=== PATIENT | female | born 2000 | race Caucasian/White ===

== ENCOUNTER 2018-03-23 16:28 | Emergency (ER) | payer BC ==
[2018-03-23 16:54] VITALS: RESP 18
--- NOTE | 2018-03-23 18:48 | ED ---
ENT HPI - General Chief complaint: ENT Stated complaint: fever, 7wks preg Time Seen by Provider: 03/23/18 17:55 Source: patient Mode of arrival: ambulatory Limitations: no limitations - History of Present Illness Initial comments: 18-year-old female 7 weeks with no PMH presenting today for cc of congestion, sinus pressure, sore throat and b/l ear pain. Pt states that she has been experiencing congestion, sinus pressure, sore throat and bilateral ear pain the past 2-3 days. Patient states that she has also recorded a fever at home. Pt denies abdominal pain, vaginal bleeding, diarrhea, constipation, nausea , hearing loss, ear drainage/bleeding, difficulty breathing or swallowing. Patient states she has had morning sickness however changes, denies hematemesis. Patient denies any cough or sputum production. Patient denies any body aches or rigors. Patient states that symptoms are similar to when she' s had a sinus infection the past, including complaint of dull aching headache. Patient states that she called her OBGYN who told her to come to the ER for evaluation if concerned. Pt stated that she would like the baby checked on and an picture of the baby, denied any symptoms concerning for compromise of baby including vaginal discharge, bleeding, or abdominal pain. Pt has scheduled OBGYN appointment next week. Pt states that she has taken tylenol for fever mgmt over the course of the past 2-3 days with last dose earlier today. Upon arrival pt appears well, nontoxic. VS within normal limits. No signs of distress. Remainder of ROS (-) shortness of breath, chest pain, back pain, numbness or tingling, dysuria or hematuria, constipation or diarrhea, or visual changes, or any other complaints. - Related Data Previous Rx's Medication Instructions Recorded Cephalexin [Keflex] 500 mg PO Q6HR 5 Days #20 cap 03/23/18 Allergies Allergy/AdvReac Type Severity Reaction Status Date / Time codeine Allergy Nausea & Verified 03/23/18 18:20 [From Tylenol-Codeine #3] Vomiting Review of Systems ROS Statement: Those systems with pertinent positive or pertinent negative responses have been documented in the HPI. ROS Other: All systems not noted in ROS Statement are negative. Constitutional: Reports: fever. Denies: chills, night sweats ENT: Reports: ear pain, throat pain Respiratory: Denies: cough, dyspnea, wheezes, hemoptysis, stridor Cardiovascular: Denies: chest pain, dyspnea on exertion Endocrine: Denies: fatigue Gastrointestinal: Reports: vomiting (on and off since ). Denies: abdominal pain, nausea Genitourinary: Denies: urgency, dysuria, frequency, hematuria Musculoskeletal: Denies: back pain Skin: Denies: rash, lesions Neurological: Reports: headache (dull ache, not worst of life, states its barely noticeable). Denies: numbness, paresthesias, confusion, abnormal gait Past Medical History Past Medical History: No Reported History History of Any Multi-Drug Resistant Organisms: None Reported Past Surgical History: Tonsillectomy Past Psychological History: Depression Smoking Status: Never smoker Past Alcohol Use History: None Reported Past Drug Use History: None Reported General Exam - General Exam Comments Initial Comments: General: The patient is awake and alert, in no distress, and does not appear acutely ill. Eye: +3 mm pupils are equal, round and reactive to light, extra-ocular movements are intact. no evidence of photophobia.. No nystagmus. There is normal conjunctiva bilaterally. No signs of icterus. Ears, nose, mouth and throat: There are moist mucous membranes and no oral lesions. Tympanic membranes are within normal limits bilaterally, there is no erythema, effusions retractions or bulging. External auditory canal no erythema , swelling, drainage or lesions. No pain to palpation of the tragus or pulling of the auricle. No tenderness to palpation of the mastoid. Oropharynx is erythematous, there is postnasal drip. Tonsillar pillars absent. Uvula midline. No palpable anterior cervical lymphadenopathy. Neck: The neck is supple, there is no tenderness or JVD. No nuchal rigidity, negative Kernig, negative Brudzinski. Cardiovascular: There is a regular rate and rhythm. No murmur, rub or gallop is appreciated. Respiratory: Lungs are clear to auscultation, respirations are non-labored, breath sounds are equal. No wheezes, stridor, rales, or rhonchi. Gastrointestinal: Soft, non-distended, non-tender abdomen without masses or organomegaly noted. There is no rebound or guarding present. No CVA tenderness. Bowel sounds are unremarkable. Musculoskeletal: Normal ROM, no tenderness. Strength 5/5. Sensation intact. Radial pulses equal bilaterally 2+. Neurological: A&O x 3. CN II-XII intact, There are no obvious motor or sensory deficits. Coordination appears grossly intact. Speech is normal. Skin: Skin is warm and dry and no rashes or lesions are noted. Psychiatric: Cooperative, appropriate mood & affect, normal judgment. Limitations: no limitations Course Vital Signs 03/23/18 03/23/18 16:51 20:41 Temperature 98.5 F 98.1 F Pulse Rate 81 85 Respiratory 18 18 Rate Blood Pressure 121/77 108/71 O2 Sat by Pulse 99 97 Oximetry Medical Decision Making - Medical Decision Making Physical exam revealed a mildly erythematous oropharynx with postnasal drip. Tympanic membranes within normal limits, I feel patient's bilateral ear pain most likely due to eustachian tube dysfunction from congestion. There was tenderness palpation of the frontal and maxillary sinuses. Rhinorrhea clear. Lungs sounds clear to auscultation. Abdominal pain benign. Negative influenza, strep throat testing. I feel patient's symptoms are possibly due to viral upper rest or infection. We discussed chest x-ray, however patient deferred at this time, stating she does not want to expose the baby to any radiation. I discussed option of shielding however she states that she would return if symptoms worsen/develop cough/sputum production. Pt appears well and nontoxic, VS within normal limits. Pt denies any abdominal pain, cramping or vaginal bleeding/discharge. Pt requested "check up" on baby. UA revealed leukocyte esterase as well as white blood cells concerning for infection. Patient denies symptoms. Patient be treated for urinary tract infection in with Keflex 4 times a day 5 days with close primary care follow-up in 1-2 days.. Transvaginal ultrasound revealed viable intrauterine 6 weeks 3 days with CORIE of 11/13/2018, heart rate 120 bpm adnexa are within normal limits, no free fluid- no evidence of ectopic. At this time I feel pt is stable for discharge with f/u with OBGYN as scheduled next week. Case discussed with Dr. Yee who agreed with impression plan. Discussed symptomatic treatment for viral URI, patient is agreeable with plan. Patient stated Tylenol for fever management, follow-up closely with primary care provider as well as [facility]. Patient is agreeable plan states she is ready for discharge. Patient was discharged in stable condition. Return parameters discussed at length, patient verbalized understanding. Patient denied questions at this time. - Lab Data Lab Results 03/23/18 03/23/18 03/23/18 Range/Units 18:35 18:35 19:40 Urine Color Urine Appearance (Clear) Urine pH (5.0-8.0) Ur Specific [place] (1.001-1.035) Urine Protein (Negative) Urine Glucose (UA) (Negative) Urine Ketones (Negative) Urine Blood (Negative) Urine Nitrite (Negative) Urine Bilirubin (Negative) Urine Urobilinogen (<2.0) mg/dL Ur Leukocyte Esterase (Negative) Urine RBC (0-5) /hpf Urine WBC (0-5) /hpf Ur Squamous Epith Cells (0-4) /hpf Urine Bacteria (None) /hpf Urine Mucus (None) /hpf Urine HCG, Qual Detected (Not Detectd) Influenza Type A RNA Not Detected (Not Detectd) Influenza Type B (PCR) Not Detected (Not Detectd) Group A Strep Rapid Negative (Negative) 03/23/18 Range/Units 19:40 Urine Color Yellow Urine Appearance Cloudy H (Clear) Urine pH 6.0 (5.0-8.0) Ur Specific [place] 1.013 (1.001-1.035) Urine Protein Negative (Negative) Urine Glucose (UA) Negative (Negative) Urine Ketones 1+ H (Negative) Urine Blood Negative (Negative) Urine Nitrite Negative (Negative) Urine Bilirubin Negative (Negative) Urine Urobilinogen <2.0 (<2.0) mg/dL Ur Leukocyte Esterase Trace H (Negative) Urine RBC 1 (0-5) /hpf Urine WBC 4 (0-5) /hpf Ur Squamous Epith Cells 13 H (0-4) /hpf Urine Bacteria Many H (None) /hpf Urine Mucus Rare H (None) /hpf Urine HCG, Qual (Not Detectd) Influenza Type A RNA (Not Detectd) Influenza Type B (PCR) (Not Detectd) Group A Strep Rapid (Negative) Disposition Clinical Impression: UTI (urinary tract infection), Upper respiratory infection Disposition: HOME SELF-CARE Condition: Good Instructions: Upper Respiratory Infection (ED), Urinary Tract Infection in (ED) Additional Instructions: Please use medication as discussed. Please follow-up with family doctor in the next 2 days. Please follow-up with OBGYN next week as discussed. Please return to emergency room if the symptoms increase or worsen or for any other concerns, including flank pain. Prescriptions: Cephalexin [Keflex] 500 mg PO Q6HR 5 Days #20 cap Is patient prescribed a controlled substance at d/c from ED?: No Referrals: None,Stated [REFERRING] - 1-2 days Time of Disposition: 20:10
--- NOTE | 2018-03-23 19:37 | US ---
EXAMINATION TYPE: Transabdominal DATE OF EXAM: 08/05/17 COMPARISON: NONE CLINICAL HISTORY: .. Cramping EXAM PERFORMED: Transabdominal (TA) EXAM MEASUREMENTS: GESTATIONAL AGE / DATING Physician Established: Not yet established Dates by LMP: (7 weeks/1 days) EDC: 11/08/2018 Dates by First Scan: No previous this is first scan Dates by Current Scan for: ( 6 weeks/3 days) EDC: 11/13/2018 MATERNAL ANATOMY Uterus: 9.2 x 5.2 x 7.3 cm Right Ovary: Obscured by bowel gas. Left Ovary: Obscured by bowel gas. Post CDS / Adnexa: wnl Presence of free fluid: no Presence of corpus luteal cyst: no Presence of subchorionic bleed: no GESTATION / SURVEY CRL: 0.63cm (6 weeks/3 days) Yolk Sac (normal less than 6mm): 2mm Heart Rate: 120 bpm Rhythm: Normal IUP: Viable IUP Beta HcG (if available): Not available at this time Viable IUP 6w3d CORIE 11/13/2018 HR 120 BPM. IMPRESSION: No complicating process seen.
[2018-03-23 19:57] LABS: Appearance,Urine Cloudy (Clear); Bacteria,Urine Many /hpf; Bilirubin,Urine Negative (Negative); Blood,Urine Negative (Negative); Color,Urine Yellow; Glucose,Urine (UA) Negative (Negative); Ketones,Urine 1+ (Negative); Leukocyte Esterase,Urine Trace (Negative); Mucus,Urine Rare /hpf; Nitrite,Urine Negative (Negative); Protein,Urine Negative (Negative); RBC,Urine 1 /hpf (0-5); Specific Gravity,Urine 1.013 (1.001-1.035); Squamous Epithelial Cell,Urine 13 /hpf (0-4); Urobilinogen,Urine <2.0 mg/dL (<2.0); WBC,Urine 4 /hpf (0-5)
[2018-03-23 20:42] VITALS: BP 108/71; PULSE 85; TEMP 98.1
== END 2018-03-23 20:40 | disposition home or self-care (01) ==
LOC: EC 16:28
DX: O23.41 Unspecified infection of urinary tract in pregnancy, first trimester (principal); O99.511 Diseases of the respiratory system complicating pregnancy, first trimester; J06.9 Acute upper respiratory infection, unspecified; O99.89 Other specified diseases and conditions complicating pregnancy, childbirth and the puerperium; H92.03 Otalgia, bilateral; Z88.5 Allergy status to narcotic agent; Z90.89 Acquired absence of other organs; Z3A.01 Less than 8 weeks gestation of pregnancy
CPT/HCPCS: 76801; 81001; 81025; 87081; 87430; 87502; 99284

== ENCOUNTER 2018-05-17 19:09 | Emergency (ER) | payer BC, OTHER ==
[2018-05-17] MEDS ORDERED: SODIUM CHLORIDE 0.9% 1,000 ML IV STA (19:49)
--- NOTE | 2018-05-17 20:07 | ED ---
Abdominal Pain HPI - General Chief Complaint: Abdominal Pain Stated Complaint: 15 WEEKS , ABDOMINAL PAIN NAUSEA, DIZZY Time Seen by Provider: 05/17/18 19:19 Source: patient Mode of arrival: ambulatory Limitations: no limitations - History of Present Illness Initial Comments: 18-year-old female patient presents to the emergency department today for evaluation of generalized abdominal pain. Patient states as an intense pain that does not feel like cramping, is not sharp and has not aching. She can't describe the pain. States it is quite severe. Patient states is causing her to be nauseous and giving her headache. She states she is also having mid low back pain. She denies any vomiting, constipation, or diarrhea. States her last bowel movement was early this afternoon. She denies any fevers or chills with this. Denies any hematuria, dysuria, urinary frequency, urinary urgency. Patient states she is 15 weeks , . She is a patient of Dr. Mg. States she has established care and has had a ultrasound confirming intrauterine . Patient denies any recent rash, shortness breath, chest pain, numbness, tingling, dizziness, weakness, headache, visual changes, or any other complaints. - Related Data Home Medications Medication Instructions Recorded Confirmed Cholecalciferol (Vitamin D3) 2,000 unit PO DAILY 05/17/18 05/17/18 [Vitamin D3] Age-Djld-Vhfpt Acid 1 cap PO DAILY 05/17/18 05/17/18 [-U Capsule (formulary)] Allergies Allergy/AdvReac Type Severity Reaction Status Date / Time codeine Allergy Nausea & Verified 05/17/18 19:28 [From Tylenol-Codeine #3] Vomiting Review of Systems ROS Statement: Those systems with pertinent positive or pertinent negative responses have been documented in the HPI. ROS Other: All systems not noted in ROS Statement are negative. Past Medical History Past Medical History: No Reported History History of Any Multi-Drug Resistant Organisms: None Reported Past Surgical History: Tonsillectomy Past Psychological History: Depression Smoking Status: Never smoker Past Alcohol Use History: None Reported Past Drug Use History: None Reported General Exam Limitations: no limitations General appearance: alert, in no apparent distress, other (This is a well- developed, well-nourished adult female patient in no acute distress. Vital signs upon presentation are temperature 98.2F, pulse 108, respirations 18, blood pressure 122/72, pulse ox 99% on room air.) Eye exam: Present: normal appearance, PERRL, EOMI. Absent: scleral icterus, conjunctival injection, periorbital swelling ENT exam: Present: normal exam, normal oropharynx, mucous membranes moist Respiratory exam: Present: normal lung sounds bilaterally. Absent: respiratory distress, wheezes, rales, rhonchi, stridor Cardiovascular Exam: Present: regular rate, normal rhythm, normal heart sounds. Absent: systolic murmur, diastolic murmur, rubs, gallop, clicks GI/Abdominal exam: Present: soft, tenderness (Generalized abdominal tenderness) , normal bowel sounds. Absent: distended, guarding, rebound, rigid Back exam: Absent: CVA tenderness (R), CVA tenderness (L) Neurological exam: Present: alert, oriented X3, CN II-XII intact Psychiatric exam: Present: normal affect, normal mood Skin exam: Present: warm, dry, intact, normal color. Absent: rash Course Vital Signs 05/17/18 05/17/18 19:15 23:03 Temperature 98.3 F 98.0 F Pulse Rate 108 H 78 Respiratory 18 16 Rate Blood Pressure 122/72 128/77 O2 Sat by Pulse 99 100 Oximetry Medical Decision Making - Medical Decision Making 18-year-old female patient percents to the emergency department today complaining of generalized abdominal pain and tenderness. Physical examination did reveal some mild generalized tenderness. Labs reviewed and are unremarkable. Patient is 15 weeks , ultrasound was obtained and showed no Acute processes seen, single live intrauterine measuring 15 weeks 1 day, heart rate 149. Patient was given IV fluids here in the department. She is given Tylenol. She'll be discharged home to follow-up with her specialty person to have reevaluation as soon as possible. Return parameters were discussed in detail. She verbalizes understanding and agrees with this plan. - Lab Data Result diagrams: 05/17/18 20:10 05/17/18 20:10 Lab Results 05/17/18 05/17/18 05/17/18 Range/Units 20:10 20:10 21:05 WBC 12.2 H (4.0-11.0) k/uL RBC 4.41 (3.80-5.40) m/uL Hgb 14.0 (11.4-16.0) gm/dL Hct 38.9 (34.0-46.0) % MCV 88.2 (80.0-100.0) fL MCH 31.7 (25.0-35.0) pg MCHC 36.0 (31.0-37.0) g/dL RDW 12.5 (11.5-15.5) % Plt Count 281 (150-450) k/uL Neutrophils % 75 % Lymphocytes % 18 % Monocytes % 5 % Eosinophils % 1 % Basophils % 0 % Neutrophils # 9.2 H (1.3-7.7) k/uL Lymphocytes # 2.2 (1.0-4.8) k/uL Monocytes # 0.6 (0-1.0) k/uL Eosinophils # 0.1 (0-0.7) k/uL Basophils # 0.0 (0-0.2) k/uL Sodium 138 (137-145) mmol/L Potassium 4.0 (3.5-5.1) mmol/L Chloride 108 H (98-107) mmol/L Carbon Dioxide 19 L (22-30) mmol/L Anion Gap 11 mmol/L BUN 6 L (7-17) mg/dL Creatinine 0.50 L (0.52-1.04) mg/dL Est GFR (CKD-EPI)AfAm >90 (>60 ml/min/1.73 sqM) Est GFR (CKD-EPI)NonAf >90 (>60 ml/min/1.73 sqM) Glucose 97 (74-99) mg/dL Calcium 10.0 (8.4-10.2) mg/dL Total Bilirubin 0.9 (0.2-1.3) mg/dL AST 35 (14-36) U/L ALT 45 (9-52) U/L Alkaline Phosphatase 65 (38-126) U/L Total Protein 7.6 (6.3-8.2) g/dL Albumin 4.4 (3.5-5.0) g/dL Amylase 48 (30-110) U/L Lipase 29 (23-300) U/L Urine Color Yellow Urine Appearance Cloudy H (Clear) Urine pH 7.0 (5.0-8.0) Ur Specific [place] 1.017 (1.001-1.035) Urine Protein Negative (Negative) Urine Glucose (UA) Negative (Negative) Urine Ketones 1+ H (Negative) Urine Blood Negative (Negative) Urine Nitrite Negative (Negative) Urine Bilirubin Negative (Negative) Urine Urobilinogen <2.0 (<2.0) mg/dL Ur Leukocyte Esterase Small H (Negative) Urine RBC <1 (0-5) /hpf Urine WBC 3 (0-5) /hpf Ur Squamous Epith Cells 8 H (0-4) /hpf Urine Bacteria Rare H (None) /hpf Urine Mucus Rare H (None) /hpf - Radiology Data Radiology results: report reviewed, image reviewed ultrasound was obtained. Report was reviewed in its entirety. Impression by Dr. Jamison shows single live and treated in , heart rate 149. No complicating process. Disposition Clinical Impression: Abdominal pain during Disposition: HOME SELF-CARE Condition: Good Instructions: Abdominal Pain (ED) Additional Instructions: Increase fluids. Follow up with your OBGYN for recheck in 1-2 days. Return immediately for any new, worsening, or concerning symptoms. Is patient prescribed a controlled substance at d/c from ED?: No Referrals: Lisa Miller MD [Primary Care Provider] - 1-2 days Time of Disposition: 22:26
[2018-05-17 20:26] LABS: Basophils % (A) 0 %; Eosinophils # (A) 0.1 k/uL (0-0.7); Eosinophils % (A) 1 %; HCT 38.9 % (34.0-46.0); Lymphocytes # (A) 2.2 k/uL (1.0-4.8); Lymphocytes % (A) 18 %; MCH 31.7 pg (25.0-35.0); MCV 88.2 fL (80.0-100.0); Mean Platelet Volume 6.7; Monocytes # (A) 0.6 k/uL (0-1.0); Monocytes % (A) 5 %; Neutrophils # (A) 9.2 k/uL (1.3-7.7); Neutrophils % (A) 75 %; Platelet Count 281 k/uL (150-450); RBC 4.41 m/uL (3.80-5.40); RDW 12.5 % (11.5-15.5); WBC 12.2 k/uL (4.0-11.0)
[2018-05-17 20:41] LABS: ALT 45 U/L (9-52); AST 35 U/L (14-36); Albumin 4.4 g/dL (3.5-5.0); Alkaline Phosphatase 65 U/L (38-126); Amylase 48 U/L (30-110); Anion Gap 11 mmol/L; Blood Urea Nitrogen 6 mg/dL (7-17); Carbon Dioxide 19 mmol/L (22-30); Chloride 108 mmol/L (98-107); Glucose 97 mg/dL (74-99); Lipase 29 U/L (23-300); Sodium 138 mmol/L (137-145); Total Bilirubin 0.9 mg/dL (0.2-1.3); Total Protein 7.6 g/dL (6.3-8.2)
--- NOTE | 2018-05-17 21:02 | US ---
EXAMINATION TYPE: US OB >= 14 wk fetus DATE OF EXAM: 05/17/2018 COMPARISON: None CLINICAL HISTORY: Pain Abdominal pain, nausea, dizziness TECHNIQUE: Transabdominal (TA) GESTATIONAL AGE / DATING Physician Established: (15 weeks/0 days) EDC: 11/08/18 Dates by LMP: (15 weeks/0 days) EDC: 11/08/18 Dates by First Scan: (14 weeks/2 days) EDC: 11/13/18 Dates by Current Scan: (14 weeks/5 days) EDC: 11/10/18 SURVEY IUP: Single PLACENTA: Posterior PREVIA: Low Lying SONIDO: 10.8 cm Normal CERVICAL LENGTH (transabdominal: norm > 3.0cm): 3.1 cm BIOMETRY PRESENTATION: Vertex LIE: Transverse with head maternal LT BPD: 2.8 cm 15 weeks / 1 days HC: 10.8 cm 15 weeks / 1 days AC: 8.6 cm 14 weeks / 6 days FL: 1.5 cm 14 weeks / 2 days ESTIMATED WEIGHT IN GRAMS: 103 grams ESTIMATED WEIGHT IN LBS/OZ: 0 lbs. 4 oz. WEIGHT PERCENTAGE BASED ON ESTABLISHED DATES: 17.8% HC/AC: 1.25 Normal FL/AC: 16.99 Normal HEART RATE: 149 bpm RHYTHM: Normal IMPRESSION: Single live intrauterine as described above.
[2018-05-17 21:29] LABS: Appearance,Urine Cloudy (Clear); Bacteria,Urine Rare /hpf; Bilirubin,Urine Negative (Negative); Blood,Urine Negative (Negative); Color,Urine Yellow; Glucose,Urine (UA) Negative (Negative); Ketones,Urine 1+ (Negative); Leukocyte Esterase,Urine Small (Negative); Mucus,Urine Rare /hpf; Nitrite,Urine Negative (Negative); Protein,Urine Negative (Negative); RBC,Urine <1 /hpf (0-5); Specific Gravity,Urine 1.017 (1.001-1.035); Squamous Epithelial Cell,Urine 8 /hpf (0-4); Urobilinogen,Urine <2.0 mg/dL (<2.0); WBC,Urine 3 /hpf (0-5)
[2018-05-17] MEDS ORDERED: ACETAMINOPHEN TAB 500 MG TAB PO STA (22:25)
[2018-05-17 23:03] VITALS: BP 128/77; PULSE 78; RESP 16; TEMP 98
== END 2018-05-17 23:03 | disposition home or self-care (01) ==
LOC: EC 19:09
DX: O99.89 Other specified diseases and conditions complicating pregnancy, childbirth and the puerperium (principal); R10.84 Generalized abdominal pain; R11.0 Nausea; R42 Dizziness and giddiness; M54.5 Low back pain; R51 Headache; Z3A.15 15 weeks gestation of pregnancy; Z88.5 Allergy status to narcotic agent
CPT/HCPCS: 36415; 76805; 80053; 81001; 82150; 83690; 85025; 96360; 99284